=== PATIENT | male | born 1935 | race Caucasian/White ===

== ENCOUNTER 2017-11-09 18:47 | Inpatient (IN) | payer MEDICARE ==
[2017-11-09 20:06] LABS: #Eosinphils 0.1 thou/uL (0.0-0.7); #Lymphocytes 2.2 thou/uL (1.20-3.40); %Basophils 0.4 % (0.0-1.0); %Eosinophils 0.6 % (0.0-10.0); %Lymphocytes 21.4 % (21.0-51.0); %Monocytes 9.7 % (0.0-10.0); %Neutrophils 67.9 % (42.0-75.0); Hemoglobin 14.3 g/dL (14.0-18.0); Mean Corpuscular HGB CONC 33.8 g/dL (32.0-36.0); Mean Corpuscular Hemoglobin 32.5 pg (27.0-31.0); Mean Corpuscular Volume 96.3 fL (78.0-98.0); Mean Platelet Volume 7.6 fL (7.4-10.4); Platelet Count 141 thou/uL (130-400); White Blood Cell (WBC) Count 10.3 thou/uL (4.8-10.8)
[2017-11-09 20:16] LABS: INR-International Normal Ratio 1.1; Prothrombin Time 14.3 SEC (12.0-14.7)
[2017-11-09 20:27] LABS: CK (CPK) 116 U/L (30-200); Lipase 100 U/L (8-78)
[2017-11-09 20:29] LABS: Troponin I 0.014 ng/mL (< 0.028)
[2017-11-09 20:40] LABS: ALT (SGPT) 124 U/L (8-55); AST (SGOT) 202 U/L (5-34); Albumin 3.3 g/dL (3.4-4.8); Alkaline Phosphatase 177 U/L (40-150); Anion Gap 14 mmol/L (10-20); BUN (Urea Nitrogen) 35 mg/dL (8.4-25.7); Bilirubin, Total 0.7 mg/dL (0.2-1.2); Calc. Creatinine Clearance 0 mL/min (70-130); Calcium 10.9 mg/dL (7.8-10.44); Carbon Dioxide 23 mmol/L (23-31); Chloride 105 mmol/L (98-107); Estimated GFR-MDRD 50; Globulin 3.6 g/dL (2.4-3.5); Glucose 133 mg/dL (83-110); Potassium 4.4 mmol/L (3.5-5.1); Protein, Total 6.9 g/dL (5.8-8.1); Sodium 138 mmol/L (136-145)
[2017-11-10] MEDS ORDERED: Bisacodyl 5 MG TAB PO PRN (01:06)
[2017-11-10] MEDS ORDERED: Ondansetron HCl/PF 4 MG/2 ML Vial IVP PRN (01:06)
[2017-11-10] MEDS ORDERED: Senokot 8.6 MG TAB PO PRN (01:06)
--- NOTE | 2017-11-10 01:20 | PDOC.EVN ---
Event Note - Event Note Event Note: h&p [id number]
[2017-11-10 01:44] VITALS: BMI 29.1
[2017-11-10 02:05] LABS: Troponin I 0.013 ng/mL (< 0.028)
[2017-11-10] MEDS: Sodium Chloride 0.9% 1,000 ML IV SCH ×2 (02:25→16:30)
--- NOTE | 2017-11-10 02:50 | HP ---
PRIMARY CARE PHYSICIAN: Dr. Bui. CHIEF COMPLAINT: Chest pain. HISTORY OF PRESENT ILLNESS: This is an 82-year-old male with previously minimal past medical history other than hypertension who presented with chest pain throughout his chest bilaterally for the last several days. It appears that the patient was previously seen at [facility] for these complaints, was told that he has new liver and bone cancer metastases and possible cholecystitis, and subsequently transferred to our facility for "insurance issues." At the time of my evaluation, the patient still has chest pain. He describes it as a dull pain throughout his chest wall and it is intermittent in nature and does not seem to be better or worse with exertion or rest. Patient states that is dull, throbbing like. He also had similar pain along his back and to his hips as well. He denies any shortness of breath, diaphoresis, nausea with these episodes of discomfort. At the time of my evaluation, the patient currently does not have active discomfort REVIEW OF SYSTEMS: As per HPI. Constitutional: The patient denies any overt weight gain or loss. His daughter is with him at bedside and feels that he may have been losing some weight and he definitely has been having decreased oral intake per family at bedside. Denies any fevers or chills. HEENT: Denies any lightheadedness, dizziness, new headaches, or vision changes. Cardiovascular: Chest discomfort as described above. No left-sided only numbness or tingling. No episodes of diaphoresis. Respiratory: Denies any shortness of breath, cough , congestion, or recent upper respiratory infection. Gastrointestinal: Denies any nausea, vomiting, abdominal pain issues with diarrhea. He has been having some intermittent issues with constipation. Patient's family at bedside, feels that he has been eating less than his usual. Patient himself, however, describes a retained appetite. Genitourinary: Denies any dysuria or changes in urinary frequency, quality, quantity. Denies any issues with starting urinary stream. Musculoskeletal: As per above. Remainder of the review of systems is otherwise negative. PAST MEDICAL HISTORY: Significant for hypertension. PAST SURGICAL HISTORY: 1. Status post hernia repair. 2. Status post cataract surgery, bilateral. HOME MEDICATIONS: Please see the EMR for full details. His list currently includes lisinopril 20 mg p.o. daily, omeprazole 40 mg p.o. daily. It appears that in his medications, he is on cefdinir 300 mg p.o. b.i.d., I am not quite sure why the patient has this listed. The patient self did not mention this as active medications. ALLERGIES: The patient has allergies to AMLODIPINE and NIACIN. FAMILY HISTORY: Significant for longevity throughout his family, many family members living to their 90s and 100s. The patient does not have any known oncologic family history. SOCIAL HISTORY: The patient denies any alcohol, tobacco, or illicit drug use. He is accompanied today by his daughter. 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 He endorses wishing to be a DNR at this point in time. PHYSICAL EXAMINATION: GENERAL: The patient is awake, alert, conversant, in no acute distress, seated on the edge of the hospital bed. HEENT: Normocephalic, atraumatic. Moist mucous membranes. Equal ocular motions are intact. CARDIOVASCULAR: S1, S2. No murmurs, rubs, or gallops. EXTREMITIES: Pulses 2+ bilateral upper extremities. No pitting pedal edema on the left lower extremity, does have approximately 1-2+ bilateral lower pitting pedal edema on the right lower extremity, which the patient says it is grossly unchanged from his baseline. RESPIRATORY: Reasonable air movement. No wheezes, rales, or rhonchi. No conversational dyspnea. Grossly clear to auscultation. ABDOMEN: Positive bowel sounds, soft, slightly tender to palpation over the right upper quadrant. MUSCULOSKELETAL: Moving all 4 extremities. Able to ambulate to the bathroom and back without difficulty or assistance. LABORATORY DATA AND IMAGING: The patient supposedly had a CT completed of the chest, abdomen, and pelvis along with ultrasound of the abdomen conducted also at [facility]. Images are currently not available for direct viewing. WBC 10.3, hemoglobin 14.3, hematocrit 42.3, platelets 141,000. PT 14.3, INR 1.1. Sodium 138, potassium 4.4, chloride 105, bicarbonate 23, BUN 35, creatinine 1.36, glucose 133, calcium 10.9, total bilirubin 0.7, AST 202, ALT 124, alkaline phosphatase 177. Creatinine kinase 116, troponin 0.014. Total protein 6.9, albumin 3.3, lipase of 100. ASSESSMENT AND PLAN: This is an 82-year-old male who presented with a chief complaint of chest pain. 1. Regarding the chest pain, the patient certainly could have chest pain secondary to acute coronary syndrome. He certainly could be evaluated for this as such. However, the patient also has newly noted bony metastases, which is a current more likely explanation for all of his symptoms. 2. Bony metastases throughout multiple bony prominences. We will start with symptomatic management including lidocaine patch, NSAIDs, and tramadol. Oncology has already been consulted for this patient. Suspect that the elevated calcium is related to these mets as well. Unknown primary site at this point in time. Palliative care has also been consulted as well. 3. Concern for the possibility of cholelithiasis with cholecystitis. It appears that gallstones were noted. The patient certainly has a component of transaminitis including elevated AST, ALT, alkaline phosphatase, and also an elevated lipase as well. I suspect that these may be related to direct and metastatic lesions that are noted throughout the liver. However, appreciate surgical consult for their evaluation whether or not this patient may benefit from any manipulation of the gallbladder. In the meantime, continue supportive pain management, IV fluids, and an n.p.o. status. We will recheck his LFTs in the morning. 4. Elevated BUN and creatinine. We will continue with gentle IV hydration and closely monitor the patient's urine output. 5. Diet: Currently n.p.o. 6. Activity: As tolerated. 7. Deep venous thrombosis prophylaxis with enoxaparin. 8. Patient is a DNR. MTDD
[2017-11-10 05:09] LABS: #Eosinphils 0.1 thou/uL (0.0-0.7); #Lymphocytes 2.2 thou/uL (1.20-3.40); #Neutrophils 6.9 thou/uL (1.40-6.50); %Basophils 0.1 % (0.0-1.0); %Eosinophils 1.2 % (0.0-10.0); %Lymphocytes 21.2 % (21.0-51.0); %Monocytes 9.9 % (0.0-10.0); %Neutrophils 67.5 % (42.0-75.0); Hemoglobin 13.7 g/dL (14.0-18.0); Mean Corpuscular HGB CONC 34.7 g/dL (32.0-36.0); Mean Corpuscular Hemoglobin 33.1 pg (27.0-31.0); Mean Corpuscular Volume 95.2 fL (78.0-98.0); Mean Platelet Volume 7.8 fL (7.4-10.4); Platelet Count 140 thou/uL (130-400); RBC Distribution Width 12.8 % (11.5-14.5); Red Blood Cell (RBC) Count 4.14 mill/uL (4.70-6.10); White Blood Cell (WBC) Count 10.2 thou/uL (4.8-10.8)
[2017-11-10 05:31] LABS: ALT (SGPT) 128 U/L (8-55); AST (SGOT) 209 U/L (5-34); Albumin 3.2 g/dL (3.4-4.8); Alkaline Phosphatase 165 U/L (40-150); Anion Gap 15 mmol/L (10-20); BUN (Urea Nitrogen) 34 mg/dL (8.4-25.7); Bilirubin, Total 0.8 mg/dL (0.2-1.2); Calc. Creatinine Clearance 67 mL/min (70-130); Calcium 10.8 mg/dL (7.8-10.44); Carbon Dioxide 22 mmol/L (23-31); Chloride 106 mmol/L (98-107); Estimated GFR-MDRD 61; Globulin 3.5 g/dL (2.4-3.5); Glucose 97 mg/dL (83-110); Lipase 118 U/L (8-78); Potassium 4.5 mmol/L (3.5-5.1); Protein, Total 6.7 g/dL (5.8-8.1); Sodium 138 mmol/L (136-145)
[2017-11-10] MEDS: Lidocaine 5% Patch TD SCH (08:47)
[2017-11-10] MEDS: Enoxaparin Sodium 30 MG/0.3 ML SYRINGE SC SCH (08:48)
[2017-11-10] MEDS: Docusate 100 MG CAP PO SCH ×2 (08:48→20:47)
--- NOTE | 2017-11-10 11:10 | ULT ---
GALLBLADDER ULTRASOUND: HISTORY: An 82-year-old male with a history of chest pain. Liver echogenicity is markedly abnormal with what appear to be innumerable nodule or masses throughou t the right and left lobes of the liver very concerning for liver metastasis. There are multiple gal lstones within the gallbladder. There is some focal gallbladder wall thickening with a small amount of pericholecystic fluid versus some free fluid in the subhepatic space. There is a complex cystic m ass involving the right kidney measuring 5.2 x 5.4 x 6.8 cm with what appear to be some septations, s ome of which appear to be calcified as well as a potential more nodular intracystic mass up to approx imately 1.6 cm. There is no right renal hydronephrosis. The region of the pancreas is mostly obscur ed. IMPRESSION: 1. Multiple gallstones within the gallbladder with some gallbladder wall thickening and a small amou nt of fluid adjacent to the gallbladder, either some pericholecystic fluid or a small amount of free fluid in the subhepatic space. If there is clinical concern for acute cholecystitis, a followup [facility] hepatobiliary scan might be a consideration. 2. Very extensively abnormal nodular echogenicity throughout the right and left lobes of the liver, certainly very worrisome for very extensive liver metastasis. 3. Complex left renal cystic mass. 4. Followup multiphase CT scan with and without IV contrast of the abdomen and pelvis including tashi rial phase, portal venous phase, and delayed imaging to further evaluate the liver abnormalities as w ell as the right renal abnormality is recommended for further assessment. CODE T POS: PHIL
--- NOTE | 2017-11-10 13:22 | PDOC.PN ---
- Subjective Encounter Start Date: 11/10/17 Encounter Start Time: 13:17 Mr. Spain was seen for follow-up. of chest discomfort, and newly diagnosed metastatic cancer. He says the pain is better with the Lidoderm patch. He denies any abdominal pain, and he denies nausea or vomting. He is currently sitting up eating lunch without a problem. - Objective Resuscitation Status: Resuscitation Status FULL:Full Resuscitation MAR Reviewed: Yes Vital Signs & Weight: Vital Signs (12 hours) Temp Pulse Resp BP Pulse Ox 11/10/17 08:00 98.3 F 74 16 93 L 11/10/17 04:17 98.3 F 74 16 156/74 H 93 L Weight Admit Weight 214 lb 15.211 oz Weight 214 lb 15.211 oz Result Diagrams: 11/10/17 04:30 11/10/17 04:30 Phys Exam - Physical Examination HEENT: PERRLA Respiratory: no wheezing, no rales, no rhonchi, clear to auscultation bilateral Cardiovascular: RRR, no significant murmur, no rub Gastrointestinal: soft, positive bowel sounds Musculoskeletal: no edema Dx/Plan (1) Cholelithiasis Code(s): K80.20 - CALCULUS OF GALLBLADDER W/O CHOLECYSTITIS W/O OBSTRUCTION Status: Acute (2) Metastatic malignant neoplasm of unknown primary site Code(s): C79.9 - SECONDARY MALIGNANT NEOPLASM OF UNSPECIFIED SITE; C80.1 - MALIGNANT (PRIMARY) NEOPLASM, UNSPECIFIED Status: Acute - Plan * Cholelithiasis- Clinically he does not behave as if he has acute or subacute cholecystitis-will hold off on HIDA scan- will await further opinion from General Surgery. * Metastatic cancer with unknown Primary site- discussed with patient and daughter in detail. Will await recommendations from Oncology, as to pursue a tissue diagnosis or not, information regarding prognosis ect.
[2017-11-10] MEDS ORDERED: Melatonin 3 MG TAB PO PRN (13:26)
--- NOTE | 2017-11-10 15:17 | EKG ---
Test Reason : Blood Pressure : / mmHG Vent. Rate : 077 BPM Atrial Rate : 077 BPM P-R Int : 232 ms QRS Dur : 102 ms QT Int : 360 ms P-R-T Axes : -17 -31 053 degrees QTc Int : 407 ms Sinus rhythm with 1st degree A-V block Left axis deviation Abnormal ECG When compared with ECG of 09-NOV-2017 19:58, (Unconfirmed) No significant change was found Confirmed by NEHEMIAS PULIDO MD ([id number]) on 11/10/2017 3:17:30 PM Referred By: SHRUTI Confirmed By:NEHEMIAS PULIDO MD
--- NOTE | 2017-11-10 15:23 | CON ---
DATE OF CONSULTATION: 11/10/2017 CHIEF COMPLAINT: Right upper quadrant pain. HISTORY OF PRESENT ILLNESS: This is an 82-year-old male, who was transferred over from an outside in [facility] with right upper quadrant pain, found on CT there to have evidence of diffuse hepatic malig nadya associated with diffuse osseous lytic lesions, probably due to some undiagnosed malignancy and metastatic disease. He denies weight loss, fever, or chills. He has had occasional nausea, but righ t upper quadrant pain had become more intense. It is described as 8/10; it is not associated with ea ting. He denies even any previous known malignancy of any kind. He has had a colonoscopy. He is un sure when, within the last 10 years. Denies blood in stool. PAST MEDICAL HISTORY: Hypertension. PAST SURGICAL HISTORY: Hernia repair, cataracts. MEDICINES: At home, lisinopril, omeprazole. ALLERGIES: AMLODIPINE, NIACIN FAMILY HISTORY: There is no significant history of GI malignancy or anesthetic-related complication. SOCIAL HISTORY: No smoking, alcohol, or other drugs. REVIEW OF SYSTEMS: Otherwise, negative unless described above. PHYSICAL EXAMINATION: VITAL SIGNS: Blood pressure is 159/75, pulse 78, respirations 16, temperature 98.2. HEENT: Sclerae are anicteric. Oropharynx clear. NECK: No lymphadenopathy. CHEST: Clear. HEART: Regular rate and rhythm. ABDOMEN: Soft. He has some mild tenderness in the right upper quadrant without guarding or rebound with reducible umbilical hernia: No ischemia or edema to extremities. LABORATORY DATA: White cell count is 10, hemoglobin 13, platelet count is 140. Sodium 138, potassiu m 4.5, creatinine is 1.15, calcium high at 10.8. Bilirubin is normal. AST, ALT, and alkaline phosph atase are 209, 128, and 165. Lipase elevated at 118. Albumin low at 3.2. CT scan is reviewed from [facility]. Ultrasound today here shows borderline wall thickening, pericholecystic fl uid, and gallstones, normal common bile duct. ASSESSMENT: 1. Diffuse hepatic malignancy, associated with evidence of metastatic lytic lesions to bone. 2. Right upper quadrant pain, cannot rule out cholecystitis. PLAN: I think his pain in the right upper quadrant is multifactorial. It would be hard to tell whet her this pain is associated with gallbladder, obstructed by stone or malignancy. He could just be smith ving tumor burden pain. I do not recommend cholecystectomy at this time that would be difficult or d angerous given his underlying disease. If his symptoms persist, he could undergo cholecystostomy tub e placement. That would be the only invasive procedure. I would recommend he does need continued wo rkup for this malignancy at this time. So no plans for surgery. We will follow with you.
[2017-11-10] MEDS: HYDROcodone/Acetaminophen 5/325 mg Tablet PO PRN ×2 (16:25→23:49)
[2017-11-10 17:58] LABS: CEA, Serum 110.78 ng/mL (< or = 5.0)
[2017-11-10 17:59] LABS: PSA-Symptomatic (DIAGNOSTIC) 5.64 ng/mL (0-4.0)
--- NOTE | 2017-11-10 18:00 | PDOC.EVN ---
Event Note - Event Note Event Note: I spoke with patient earlier with his daughter present for the purpose of Advanced care planning. We spoke about the finding of extensive metastatic disease found at [facility] as well as the finding on the abdominal ultrasound as well. The patient explained to me that he is aware of the how severe the disease is, but admits he will need more information before making any informed decision regarding future treatment going forward. This would include decisions regarding code status. His level of functioning was actually ok , and he was independent of ADLS's prior to just the last few weeks when he began to feel weak. He is realistic about the prognosis, but would like to try to live for his daughters I was also told that his is on Hospice care now. For now he will remain FULL Code, and await further recommendations from Oncology. APC- 30 minutes
[2017-11-10] MEDS: Lidocaine Patch Removal 1 EACH TOP SCH (20:46)
--- NOTE | 2017-11-10 22:56 | CON ---
DATE OF CONSULTATION: 11/10/2017 REASON FOR CONSULTATION: Metastatic liver lesions and lytic bone lesions. HISTORY OF PRESENT ILLNESS: Mr. Spain is a pleasant 82-year-old gentleman, who presented to [facility] with complaints of chest pain. He began having shoulder and back pain approximately 5 or 6 months ago. It has progressively worsened, so he presented to the emergency room for evaluation. A CT angio performed showed no pulmonary embolism; however, there were innumerable lytic lesions see n throughout the bone structures. He had some healing rib fractures bilaterally. There was a small right pleural effusion. There was also some nonspecific enlarged hilar lymph nodes. He then underwe nt a CT of the abdomen and pelvis without contrast. There were multiple hypodense lesions throughout the liver consistent with metastatic disease. There was a 6.4 cm exophytic cyst involving the infer ior right kidney for some cholelithiasis with questionable gallbladder thickening. He had colonic di verticulosis without inflammation. His prostate was enlarged measuring 7.5 cm. The patient's insura nce required transfer to this facility. He was admitted here for further workup. Dr. Beverly has se en the patient for his gallbladder issues. No surgery is planned. We were asked to see the patient regarding the CT findings. The patient states he began to have pain over 2 years ago, but over the l ast 5 or 6 months it has significantly decreased. He has lost 15-20 pounds over the past month, alth ough he states that he has been trying to lose weight. He denies any fever, chills, night sweats. N o chest pain or shortness of breath, no abdominal discomfort, no nausea, vomiting, or change in bowel movements. He does admit that he has some difficulty urinating. He also has difficulty with his co mplete bladder emptying and states his stream is a regular times. He does not know when he has had h is last prostate evaluation. He has been seen by what sounds like a vascular surgeon in [place], who has evaluated his right lower extremity edema. Apparently there is some venous insufficiency and a surgery was being planned for November. PAST MEDICAL HISTORY: 1. Hypertension. 2. Chronic right lower extremity edema. PAST SURGICAL HISTORY: Hernia repair, cataracts. ALLERGIES: Amlodipine and NIACIN. HOME MEDICATIONS: 1. Lisinopril 20 mg daily. 2. Prilosec 40 mg daily. FAMILY HISTORY: No known malignancy in family members. SOCIAL HISTORY: . No alcohol, tobacco or illicit drug use. REVIEW OF SYSTEMS: Twelve-point review of systems is negative except for noted in HPI. PHYSICAL EXAMINATION: VITAL SIGNS: Temperature is 98.2, pulse is 78, respiratory rate 16, BP is 159/75. He is 94% on room air. GENERAL: Well-developed, well-nourished male in no acute distress. HEENT: Normocephalic, atraumatic. Pupils equal and reactive to light. NECK: Supple, with no mass. CARDIOVASCULAR: Regular rate and rhythm. LUNGS: Clear. ABDOMEN: Mildly distended, obese. He has a palpable liver approximately 2 cm below the costophrenic angle. Bowel sounds are positive. EXTREMITIES: He has 2+ edema in his right lower extremity, none in his left. LYMPHATIC: There is no palpable lymphadenopathy. HEMATOLOGIC: There is no petechia or purpura. NEUROLOGICAL: Nonfocal. PSYCHIATRIC: The patient is alert and oriented and appropriate. PERTINENT LABORATORY AND X-RAYS: Current WBCs are 10.2, hemoglobin 13.7, hematocrit 39.4, platelet c ount is 140,000. He has got 67% neutrophils, 21% lymphocytes. PT is 14.3, INR is 1.1, PTT is 35. S odium is 138, potassium 4.5, chloride 106, CO2 is 22, BUN is 34, creatinine 1.15, glucose is 97, calc ium is 10.8, total bilirubin is 0.8, AST is 209, ALT is 128, alkaline phosphatase is 165. Creatinine kinase is 116. Troponin is normal. Serum total protein is 6.7, albumin 3.2, globulin 3.5, lipase i s 118. ASSESSMENT: 1. Metastatic liver lesions. 2. Lytic lesions. 3. Hypercalcemia. 4. Elevated transaminases. 5. Enlarged prostate on CT scan. DISCUSSION: We will perform some PSA and CEA. We will check a SPEP and quantitative immunoglobulins . Differential diagnosis includes a solid tumor cancer such as renal or prostate versus a multiple m yeloma. Ultimately, he needs a CT guided biopsy of one of the liver lesions, which will be planned or Monday morning. I have adjusted his pain medications and he was encouraged to manage his pain, IV fluids have been started for his hypercalcemia and hopefully will improve over the next 24 hours. W e will continue to monitor his labs and further recommendations will be based on current orders. Thank you for the consult.
[2017-11-11 05:20] LABS: #Eosinphils 0.1 thou/uL (0.0-0.7); #Lymphocytes 2.1 thou/uL (1.20-3.40); #Monocytes 0.8 thou/uL (0.11-0.59); #Neutrophils 6.3 thou/uL (1.40-6.50); %Basophils 0.3 % (0.0-1.0); %Eosinophils 1.2 % (0.0-10.0); %Lymphocytes 22.6 % (21.0-51.0); %Monocytes 8.4 % (0.0-10.0); %Neutrophils 67.5 % (42.0-75.0); Hemoglobin 13.1 g/dL (14.0-18.0); Mean Corpuscular Hemoglobin 33.3 pg (27.0-31.0); Mean Corpuscular Volume 95.2 fL (78.0-98.0); Platelet Count 126 thou/uL (130-400); Red Blood Cell (RBC) Count 3.93 mill/uL (4.70-6.10); White Blood Cell (WBC) Count 9.3 thou/uL (4.8-10.8)
[2017-11-11 05:47] LABS: ALT (SGPT) 122 U/L (8-55); AST (SGOT) 215 U/L (5-34); Alkaline Phosphatase 157 U/L (40-150); Anion Gap 13 mmol/L (10-20); BUN (Urea Nitrogen) 36 mg/dL (8.4-25.7); Bilirubin, Total 0.8 mg/dL (0.2-1.2); Calc. Creatinine Clearance 65 mL/min (70-130); Calcium 10.7 mg/dL (7.8-10.44); Carbon Dioxide 22 mmol/L (23-31); Chloride 107 mmol/L (98-107); Estimated GFR-MDRD 59; Globulin 3.8 g/dL (2.4-3.5); Glucose 93 mg/dL (83-110); Potassium 5.2 mmol/L (3.5-5.1); Protein, Total 6.8 g/dL (5.8-8.1); Sodium 137 mmol/L (136-145)
[2017-11-11] MEDS: Sodium Chloride 0.9% 1,000 ML IV SCH ×3 (05:51→23:57)
[2017-11-11] MEDS: Lidocaine 5% Patch TD SCH (09:28)
[2017-11-11] MEDS: Enoxaparin Sodium 30 MG/0.3 ML SYRINGE SC SCH (09:28)
[2017-11-11] MEDS: Docusate 100 MG CAP PO SCH ×2 (09:32→20:45)
[2017-11-11] MEDS: HYDROcodone/Acetaminophen 5/325 mg Tablet PO PRN ×2 (12:04→17:36)
--- NOTE | 2017-11-11 15:24 | PDOC.PN ---
- Subjective Encounter Start Date: 11/11/17 Encounter Start Time: 15:22 Mr. Spain was seen today in follow-up of metastatic cancer, primary unknown. He says that the pain he had is better controlled. - Objective Resuscitation Status: Resuscitation Status FULL:Full Resuscitation MAR Reviewed: Yes Vital Signs & Weight: Vital Signs (12 hours) Temp Pulse Resp BP Pulse Ox 11/11/17 08:07 98.0 F 64 18 153/78 H 92 L 11/11/17 08:00 98.0 F 64 18 Weight Admit Weight 214 lb 15.211 oz Weight 214 lb 15.211 oz I&O: 11/10/17 11/11/17 11/12/17 06:59 06:59 06:59 Intake Total 1500 240 Balance 1500 240 Result Diagrams: 11/11/17 03:52 11/11/17 03:52 Phys Exam - Physical Examination HEENT: PERRLA Respiratory: no wheezing, no rales, no rhonchi, clear to auscultation bilateral Cardiovascular: RRR, no significant murmur, no rub Gastrointestinal: soft, non-tender, positive bowel sounds Musculoskeletal: edema present + 2+ pitting edema in theleft lower extremity, no erythema, no redness no warmth Dx/Plan (1) Cholelithiasis Code(s): K80.20 - CALCULUS OF GALLBLADDER W/O CHOLECYSTITIS W/O OBSTRUCTION Status: Acute (2) Metastatic malignant neoplasm of unknown primary site Code(s): C79.9 - SECONDARY MALIGNANT NEOPLASM OF UNSPECIFIED SITE; C80.1 - MALIGNANT (PRIMARY) NEOPLASM, UNSPECIFIED Status: Acute - Plan * Metastatic Cancer, unknown Primary- Oncology recommendations noted- plan is for CT guided liver biopsy on Monday, and additional lad work noted * Symptom management - pain is controlled * Cholelithiasis- he does not clinically appear to have cholecystitis- he is tolerating a solid diet- will observe. * Right Lower extremity edema- I spoke with the patient about this. He says the swelling is actually less that it has been. It was first noted a few months ago , and his Primary Care Provider sent him for an Ultrasounf in [place], and it was reported to be negative. He was instructed to wear a compression stocking daily. Will request the records from [facility].
[2017-11-11] MEDS: traMADol HCl 50 MG TAB PO PRN (19:40)
[2017-11-11] MEDS: Lidocaine Patch Removal 1 EACH TOP SCH (20:45)
[2017-11-12 04:50] LABS: ALT (SGPT) 132 U/L (8-55); AST (SGOT) 222 U/L (5-34); Albumin 3.2 g/dL (3.4-4.8); Alkaline Phosphatase 170 U/L (40-150); Anion Gap 12 mmol/L (10-20); BUN (Urea Nitrogen) 35 mg/dL (8.4-25.7); Bilirubin, Total 1.1 mg/dL (0.2-1.2); Calc. Creatinine Clearance 62 mL/min (70-130); Calcium 11.4 mg/dL (7.8-10.44); Carbon Dioxide 25 mmol/L (23-31); Chloride 108 mmol/L (98-107); Estimated GFR-MDRD 55; Globulin 3.5 g/dL (2.4-3.5); Glucose 99 mg/dL (83-110); Potassium 4.7 mmol/L (3.5-5.1); Protein, Total 6.7 g/dL (5.8-8.1); Sodium 140 mmol/L (136-145)
[2017-11-12 05:02] LABS: Hemoglobin 13.8 g/dL (14.0-18.0); Lymphocytes 23 % (21-51); MDiff Complete? YES; Mean Corpuscular HGB CONC 34.5 g/dL (32.0-36.0); Mean Corpuscular Hemoglobin 32.9 pg (27.0-31.0); Mean Corpuscular Volume 95.3 fL (78.0-98.0); Mean Platelet Volume 8.5 fL (7.4-10.4); Monocytes 3 % (0-10); Neutrophil 74 % (42-75); PLT Morphology Comment Appears Adequate; Platelet Count 152 thou/uL (130-400); RBC Distribution Width 13.2 % (11.5-14.5); Red Blood Cell (RBC) Count 4.19 mill/uL (4.70-6.10); White Blood Cell (WBC) Count 10.2 thou/uL (4.8-10.8)
[2017-11-12] MEDS: Docusate 100 MG CAP PO SCH ×2 (08:02→20:37)
[2017-11-12] MEDS: Enoxaparin Sodium 30 MG/0.3 ML SYRINGE SC SCH (08:02)
[2017-11-12] MEDS: Lidocaine 5% Patch TD SCH (08:03)
[2017-11-12] MEDS: HYDROcodone/Acetaminophen 5/325 mg Tablet PO PRN ×3 (08:06→20:37)
--- NOTE | 2017-11-12 08:21 | ULT ---
RIGHT LOWER EXTREMITY VENOUS DUPLEX EXAM: Deep veins of the right lower extremity were evaluated with color Doppler with spectral analysis and compression. INDICATION: Right lower extremity pain and edema. FINDINGS: Deep veins of the right lower extremity show normal blood flow and compression. No evidence of DVT. IMPRESSION: No evidence of right lower extremity deep vein thrombosis. POS: CRISTHIAN
--- NOTE | 2017-11-12 12:45 | PDOC.PN ---
- Subjective Encounter Start Date: 11/12/17 Encounter Start Time: 12:43 Mr. Spain was seen today in follow-up of metastatic cancer, unknown primary. He says the pain in his chest is ok, when he is still, but when he moves it can get as high as 10/10. No new complaints. - Objective Resuscitation Status: Resuscitation Status FULL:Full Resuscitation MAR Reviewed: Yes Vital Signs & Weight: Vital Signs (12 hours) Temp Pulse Resp BP Pulse Ox 11/12/17 08:00 97.6 F 107 H 18 95 11/12/17 07:42 97.6 F 107 H 18 146/78 H 91 L Weight Admit Weight 214 lb 15.211 oz Weight 214 lb 15.211 oz I&O: 11/11/17 11/12/17 11/13/17 06:59 06:59 06:59 Intake Total 1500 4411 360 Balance 1500 4411 360 Result Diagrams: 11/12/17 04:09 11/12/17 04:09 Phys Exam - Physical Examination HEENT: PERRLA Respiratory: no wheezing, no rales, no rhonchi, clear to auscultation bilateral Cardiovascular: RRR, no significant murmur, no rub Gastrointestinal: soft, non-tender, positive bowel sounds Musculoskeletal: edema present 1-2 + edema in the right lower extremity no warmth, no erythema Neurological: moves all 4 limbs Dx/Plan (1) Cholelithiasis Code(s): K80.20 - CALCULUS OF GALLBLADDER W/O CHOLECYSTITIS W/O OBSTRUCTION Status: Acute (2) Metastatic malignant neoplasm of unknown primary site Code(s): C79.9 - SECONDARY MALIGNANT NEOPLASM OF UNSPECIFIED SITE; C80.1 - MALIGNANT (PRIMARY) NEOPLASM, UNSPECIFIED Status: Acute - Plan * Metastatic cancer with unknown primary- plan is for CT guided liver biopsy tomorrow. Bone scan has been ordered, and await SPEP UPEP results * Continue symptom management * Hypercalcemia- continue IV hydration * Cholelithiasis- asymptomatic * Lower extremity edema- likely venous stasis- doppler was negative.
[2017-11-12] MEDS: Sodium Chloride 0.9% 1,000 ML IV SCH (14:46)
[2017-11-12] MEDS: Lidocaine Patch Removal 1 EACH TOP SCH (20:46)
[2017-11-13] MEDS: Sodium Chloride 0.9% 1,000 ML IV SCH ×4 (00:10→22:04)
[2017-11-13] MEDS: HYDROcodone/Acetaminophen 5/325 mg Tablet PO PRN ×2 (04:45→09:22)
[2017-11-13 05:20] LABS: ALT (SGPT) 136 U/L (8-55); AST (SGOT) 230 U/L (5-34); Albumin 3.3 g/dL (3.4-4.8); Alkaline Phosphatase 174 U/L (40-150); Anion Gap 12 mmol/L (10-20); BUN (Urea Nitrogen) 32 mg/dL (8.4-25.7); Bilirubin, Total 1.1 mg/dL (0.2-1.2); Calc. Creatinine Clearance 66 mL/min (70-130); Calcium 11.4 mg/dL (7.8-10.44); Carbon Dioxide 22 mmol/L (23-31); Chloride 109 mmol/L (98-107); Estimated GFR-MDRD 60; Globulin 3.7 g/dL (2.4-3.5); Glucose 90 mg/dL (83-110); Potassium 4.4 mmol/L (3.5-5.1); Sodium 139 mmol/L (136-145)
--- NOTE | 2017-11-13 05:31 | CON ---
DATE OF CONSULTATION: 11/14/2017 REASON FOR CONSULTATION: Liver masses, elevated CEA. HISTORY OF PRESENT ILLNESS: Mr. Spain is an 82-year-old gentleman from [facility]. States he really had been in very good health his full life. He has taken some blood pressure medicine, lisinopril, he recalls. In the past several months, he has had quite a bit of chest soreness and discomfort which he thought was related to straining himself as he moves his around a lot. She is on hospice at home after previous stroke. More recently, the pain got worse and he ended up going to the emergency room at [facility] in [place]. There, he had some x-rays that showed multiple lytic lesions in the bone and rib fractures and he had a CAT scan that showed lesions to the liver and he had a CT of the chest that showed no PE, but numerous lytic lesions throughout all osseous structures, very concerned for metastatic disease or myeloma per the radiologist. The CAT scan of the abdomen and pelvis; however, it was without contrast. They did not comment on the size of the liver lesions present. Prostate was noted to be a large 7.5 cm. There was an exophytic cyst in the kidney of 6.4 cm. There were no overt solid lesions, but again this was a noncontrast CT. Gallstones were noted. There was some "questionable mild gallbladder wall thickening" per the radiologist. Since arrival here, the patient had an Oncology consult on Monday and was recommended that the patient have a liver biopsy of one lesion which is going to be done tomorrow. Also, there was an order for a nuclear medicine scan. I talked with the patient, he really has not been to the doctor for quite a while. As he had problems, he recently started seeing Dr. Bui in [place], but does have a little bit of problems getting in to see doctors because his insurance changed and he also takes care of his . He denies any significant weight loss, he meets maybe 10 pounds. He is dropped. He does have blood in the stool which was bright red at times. He attributes this to hemorrhoids. He denies any change in bowel function otherwise and states it has been present for many years. He reports he had a colonoscopy twice in the past, may be the most recent being 5- 6 years ago, these were notable for a few polyps and nothing else. Apparently, these were done in the [place] area. He denies any dysphagia, odynophagia, early satiety. When asked about abdominal pain, he states he really has not had much of that, although it was just kind of band-like across the upper abdomen and chest and pain that occurred movement. Admission notes from surgery and other specialists indicated may be some right upper quadrant pain, but he does not really thinks back it was more of chest pain, although he has received some pain medicine now. His labs have been significant for a white count of 10.2, hemoglobin 13.8, platelet count of 152. INR 1.1. Sodium 140, potassium 4.7, BUN and creatinine are 35 and 1.25, calcium 11.4, this has gone up each day. AST is 222, ALT is 132, alkaline phosphatase is 170. CEA is 110 and PSA is 5.6. He did note he has been having some right leg swelling since about April and had an ultrasound in [place] that showed no clots. He had an ultrasound here today that showed no DVT. Here, the only imaging study has been done as an ultrasound that shows what appears to be liver lesions. PAST MEDICAL HISTORY: Hypertension. PAST SURGICAL HISTORY: Hernia repair when he was in his 30s. Cardiac surgery about 8 years ago. Colonoscopy is anywhere from 6-10 years ago. HOME MEDICATIONS: Lisinopril and omeprazole. MEDICATIONS: Here include Tylenol, Hood, Dulcolax, Colace, Lovenox, Lidoderm patch, milk of magnesia, melatonin, Zofran, Senokot, and Ultram. SOCIAL HISTORY: Negative for active tobacco. REVIEW OF SYSTEMS: Negative for shortness of breath, definitely significant for pain with movement. He reports his pain control and is good now. PHYSICAL EXAMINATION: VITAL SIGNS: Pulse 107, temperature 97, blood pressure 146/78. NECK: Supple without adenopathy. There is no thyromegaly. There are no supraclavicular right clavicular lymph nodes. LUNGS: Clear. Chest wall is tender and was therefore not palpated too much. There is no need for axillary or adenopathy or periumbilical adenopathy. There was a small periumbilical hernia. HEART: Regular rate and rhythm without clicks or murmurs. ABDOMEN: Soft and nontender. Al though there is almost a little bit of crepitus in the right abdominal wall, this is not reproducible. He does have some fullness in the upper quadrant, but no rebound or guarding. There is no Molina sign. RECTAL: Reveals brown stool which is heme negative and external hemorrhoids. EXTREMITIES: No real edema in the right leg. ASSESSMENT: This is an 82-year-old gentleman who presented with chest pain which seems to be related to pathologic fractures in the ribs various ages and extensive bone metastatic disease, primary is unknown, but he has multiple liver lesions on outside imaging test of the liver. A CAT scan, however, this was without contrast. He has an elevated CEA of over 200 leading towards primary of glandular tissue. He, however, reports a normal colonoscopy except for a few small polyps 5-6 years ago and really has no overt GI symptoms with some rectal outlet bleeding. A digital exam by myself was normal. Oncology was ordered a liver biopsy for tomorrow. The bone scan I have talked with Dr. Flores, he feels that the patient who is on for Oncology and he feels the patient even if the liver biopsy is positive for adenocarcinoma, ultimately change his treatment options. Hypercalcemia seems to be clicking up every day. Renal function is preserved for now that is bumping slowly as well. RECOMMENDATIONS: I would increase the patient's fluids to 100 an hour. I would consider giving a bisphosphonate to get his hypercalcemia under control. I would biopsy of his liver. If that is adenocarcinoma, then we can consider endoscopies. Alternative would be to proceed with upper and lower endoscopy now , however, the lack of GI symptoms gets a guarantee to give him a diagnosis, although this probably is a GI primary. I think that it is going to be pretty difficult for him to do an endoscopy. He is already kind of dehydrated from the hypercalcemia that should be corrected first, we had to make a diagnosis. It is possible that he will have no overt GI findings and with the lack of any anemia, I would not surprise me if he does not have any intraluminal disease. ELAINED
[2017-11-13] MEDS: Docusate 100 MG CAP PO SCH ×2 (09:12→21:27)
[2017-11-13] MEDS: Lidocaine 5% Patch TD SCH (09:23)
[2017-11-13] MEDS: Enoxaparin Sodium 30 MG/0.3 ML SYRINGE SC SCH ×2 (09:24→13:10)
[2017-11-13] MEDS ORDERED: Fentanyl 100 MCG/2 ML VIAL SLOW IVP SCH (12:45)
[2017-11-13] MEDS ORDERED: HYDROcodone/Acetaminophen 10/325 mg Tablet PO PRN (12:45)
--- NOTE | 2017-11-13 12:48 | PDOC.PN ---
- Subjective Encounter Start Date: 11/13/17 Encounter Start Time: 12:46 Mr. Spain was seen today in follow-up of metastatic cancer- unknown primary. He says the pain is only moderately controlled. He is a bit anxious about going for his biopsy. - Objective Resuscitation Status: Resuscitation Status FULL:Full Resuscitation MAR Reviewed: Yes Vital Signs & Weight: Vital Signs (12 hours) Temp Pulse Resp BP Pulse Ox 11/13/17 08:36 98.1 F 69 18 163/80 H 90 L Weight Admit Weight 214 lb 15.211 oz Weight 214 lb 15.211 oz I&O: 11/12/17 11/13/17 11/14/17 06:59 06:59 06:59 Intake Total 4411 3027 Balance 4411 3027 Result Diagrams: 11/12/17 04:09 11/13/17 04:49 Phys Exam - Physical Examination HEENT: PERRLA Respiratory: no wheezing, no rales, no rhonchi, clear to auscultation bilateral Cardiovascular: RRR, no significant murmur, no rub Gastrointestinal: soft, positive bowel sounds Musculoskeletal: no edema Dx/Plan (1) Cholelithiasis Code(s): K80.20 - CALCULUS OF GALLBLADDER W/O CHOLECYSTITIS W/O OBSTRUCTION Status: Acute (2) Metastatic malignant neoplasm of unknown primary site Code(s): C79.9 - SECONDARY MALIGNANT NEOPLASM OF UNSPECIFIED SITE; C80.1 - MALIGNANT (PRIMARY) NEOPLASM, UNSPECIFIED Status: Acute - Plan * Metastatic cancer- unknown primary- he is going for CT guided liver biopsy today * Pain- likely due to cancer- will add Clifford 10mg as an option * Hypercalcemia- likely due to malignancy- continue IV hydration- will check PTH and PTHrP, and consider Zometa.
[2017-11-13] MEDS ORDERED: Midazolam HCl 2 mg/2 ml Vial ONE (12:51)
[2017-11-13] MEDS ORDERED: Fentanyl 100 MCG/2 ML VIAL ONE (12:51)
--- NOTE | 2017-11-13 13:24 | PRG ---
DATE OF SERVICE: 11/13/2017. SUBJECTIVE: Mr. Spain still has some chest pain related to when he moves. He is waiting for his li sohan biopsy. His family member is at the bedside. PHYSICAL EXAMINATION: VITAL SIGNS: Temperature is 98, pulse 69, blood pressure 163/80. ABDOMEN: Soft, nontender. LABORATORY DATA: Calcium of 11.4 today. AST and ALT are 230 and 136 with alkaline phosphatase of 17 4. ASSESSMENT: 1. Multiple liver lesions noted on outside imaging studies. He is going to go for a liver biopsy to day, elevated CA would indicate probably adenocarcinoma. He will need to get upper and lower endosco py this week as well. We will make sure he recovers fine from the liver biopsy and then probably pro ceed with endoscopies on Monday. 2. Ongoing pain with pathologic fractures in the ribs and evidence of bone lesions throughout the ax ial and peripheral skeleton, probably metastatic disease. 3. Hypercalcemia. RECOMMENDATIONS: 1. We will defer to Oncology and Internal Medicine whether to treat the hypercalcemia, probably ough t to be. 2. Upper and lower endoscopy on Monday. 3. Await liver biopsy.
--- NOTE | 2017-11-13 16:14 | CT ---
CT GUIDED LIVER BIOPSY: CLINICAL HISTORY: Liver lesions of indeterminate etiology. PROCEDURE: Informed consent was obtained from the patient. The patient was escorted to the procedural suite and laced into a left decubitus, semisupine position. The patient's right abdomen was prepped and drape d in the standard sterile fashion and CT fluoroscopic imaging was utilized to localize the region of interest within the inferior right hepatic lobe for biopsy purposes. Topical anesthesia with buffere d 1% Lidocaine was performed. A small skin incision was made through which a 17 gauge trocar was adv anced into the superficial aspect of the inferior portion right hepatic lobe. The inner stylette was removed and was exchanged for an 18 gauge biopsy needle. Subsequently, 4 separate core specimens we re acquired utilizing CT fluoroscopic imaging. The biopsy specimens were provided to the on-call pat hologist, Dr. Riley Macedo. The specimens were deemed adequate for interpretation, with abnormal ce lls present. Therefore, the exam was completed and thus terminated with all devices removed from the patient. Postprocedural imaging was performed which did not reveal an unexpected complication. No significant hematoma was present. The patient was transferred back to the hospital floor for continu ed care, in stable condition. IMPRESSION: Technically successful CT-guided liver biopsy. Pathology results are pending. Imaging was stored for documentation. POS: PHIL
[2017-11-13] MEDS ORDERED: Zoledronic Acid 4 MG in Sodium Chloride 0.9% 100 ML IVPB SCH (16:30)
[2017-11-13 17:12] LABS: A/G Ratio 0.9 (0.7-1.7); Albumin 3.1 g/dL (2.9-4.4); Alpha 1 0.3 g/dL (0.0-0.4); Alpha 2 0.6 g/dL (0.4-1.0); Beta 1.1 g/dL (0.7-1.3); Gamma 1.5 g/dL (0.4-1.8); Globulin, Total 3.5 g/dL (2.2-3.9); M-Spike Not Observed g/dL (Not Observed)
[2017-11-13] MEDS ORDERED: hydrALAZINE 20 MG/ML VIAL SLOW IVP PRN (17:21)
[2017-11-13] MEDS ORDERED: cloNIDine 0.1 MG TAB PO PRN (17:21)
[2017-11-13] MEDS: Lidocaine Patch Removal 1 EACH TOP SCH (21:27)
[2017-11-13] MEDS: traMADol HCl 50 MG TAB PO PRN (22:02)
[2017-11-14] MEDS: Sodium Chloride 0.9% 1,000 ML IV SCH ×3 (07:16→19:39)
[2017-11-14] MEDS: Enoxaparin Sodium 30 MG/0.3 ML SYRINGE SC SCH (08:46)
[2017-11-14] MEDS: Lidocaine 5% Patch TD SCH (08:46)
[2017-11-14] MEDS: Lisinopril 20 MG TAB PO SCH (08:47)
[2017-11-14] MEDS: Docusate 100 MG CAP PO SCH ×2 (08:47→20:57)
[2017-11-14] MEDS ORDERED: Lisinopril 20 MG TAB PO SCH (09:00)
[2017-11-14] MEDS: Acetaminophen 325 MG TAB PO PRN ×2 (10:30→20:58)
--- NOTE | 2017-11-14 13:04 | PDOC.PN ---
- Subjective Encounter Start Date: 11/14/17 Encounter Start Time: 12:58 Ms. Spain was seen today in follow-up of metastatic cancer. He notes nausea which is started this morning. It started before he ate. He also notes a decrease in his appetite. He also says the pain in his chest area is not well controlled. - Objective Resuscitation Status: Resuscitation Status FULL:Full Resuscitation MAR Reviewed: Yes Vital Signs & Weight: Vital Signs (12 hours) Temp Pulse Resp BP BP Pulse Ox 11/14/17 12:51 98.7 F 11/14/17 11:58 101.0 F H 101 H 20 119/66 92 L 11/14/17 10:30 102.3 F H 11/14/17 08:47 100.4 F H 109 H 20 137/81 137/81 94 L 11/14/17 08:40 100.4 F H 109 H 20 94 L Weight Admit Weight 214 lb 15.211 oz Weight 214 lb 15.211 oz I&O: 11/13/17 11/14/17 11/15/17 06:59 06:59 06:59 Intake Total 3027 4170 Balance 3027 4170 Result Diagrams: 11/12/17 04:09 11/13/17 04:49 Phys Exam - Physical Examination HEENT: PERRLA Respiratory: no wheezing, no rales, no rhonchi, clear to auscultation bilateral Cardiovascular: RRR, no significant murmur, no rub Gastrointestinal: soft, non-tender, no distention, positive bowel sounds Musculoskeletal: no edema Dx/Plan (1) Cholelithiasis Code(s): K80.20 - CALCULUS OF GALLBLADDER W/O CHOLECYSTITIS W/O OBSTRUCTION Status: Acute (2) Metastatic malignant neoplasm of unknown primary site Code(s): C79.9 - SECONDARY MALIGNANT NEOPLASM OF UNSPECIFIED SITE; C80.1 - MALIGNANT (PRIMARY) NEOPLASM, UNSPECIFIED Status: Acute - Plan * Metastatic cancer- awaiting biopsy results. * Chest and abdominal pain- will add Morphine IV for pain relief, as patient has nausea as well * Fever- will check a set of blood cultures
[2017-11-14 16:11] LABS: Reference Lab Name LABCORP
[2017-11-14 16:12] LABS: Ref Lab Test Ordered PTH RELATED PEPTIDE
[2017-11-14] MEDS: Milk Of Magnesia 30 ML UDCUP PO PRN (18:08)
[2017-11-14] MEDS ORDERED: Naloxone HCl 0.4 mg/ml Vial IV PRN ×2 (18:50→18:52)
[2017-11-14] MEDS ORDERED: Ondansetron HCl/PF 4 MG/2 ML Vial IVP PRN (18:50)
[2017-11-14] MEDS: HYDROmorphone 10 mg/100 ml CADD IV PRN (19:36)
[2017-11-14] MEDS: Lidocaine Patch Removal 1 EACH TOP SCH (20:57)
--- NOTE | 2017-11-15 02:11 | PRG ---
DATE OF SERVICE: 11/14/2017 SUBJECTIVE: Mr. Spain is pretty miserable today. He states anytime he moves, he has pretty bad nadeem n. He does not want to eat. He is nauseated. Related to the pain, he has been started on some morp meliza. He had a fever of 102.3 this morning, 98.4 now. OBJECTIVE: VITAL SIGNS: Pulse is 86, blood pressure 146/80. GENERAL: He is resting in bed. He is little bit confused. He received some morphine. He states it just caused him lot of pain to get up and move. LUNGS: Clear. HEART: Regular rate and rhythm. ABDOMEN: Nontender. LABORATORY DATA: Laboratory studies today none. MEDICATIONS: Tylenol, [place], Dulcolax, Catapres, colchicine, Lovenox, Apresoline, Lidoderm, Zestril, milk of magnesia, melatonin, morphine p.r.n., Zofran, Senokot, normal saline at 125 an hour, Ultram. ASSESSMENT: The patient has diffusely metastatic carcinoma by imaging studies with malignant fractur es in his chest. Biopsy of liver has been performed. Oncology has requested upper and lower endosco pies to evaluate for possible GI primary in light of elevated CEA of 110. RECOMMENDATIONS: 1. At this point in time, the patient is not comfortable enough to undergo anything. He will not dr ink bowel prep and I do think he can get up to the bathroom. I would recommend getting pain manageme nt involved in his care, possibly a WEB DESIGNER DEVELOPER or fentanyl patch to control the patient's metastatic bone pa in. 2. Once this is done and his nausea is controlled, we will get him bowel prep and get an upper and l ower endoscopies were performed. We will follow along with you.
[2017-11-15] MEDS: Sodium Chloride 0.9% 1,000 ML IV SCH ×2 (05:49→18:09)
[2017-11-15 06:04] LABS: ALT (SGPT) 130 U/L (8-55); AST (SGOT) 196 U/L (5-34); Albumin 2.5 g/dL (3.4-4.8); Alkaline Phosphatase 171 U/L (40-150); Anion Gap 11 mmol/L (10-20); BUN (Urea Nitrogen) 30 mg/dL (8.4-25.7); Bilirubin, Total 0.9 mg/dL (0.2-1.2); Calc. Creatinine Clearance 61 mL/min (70-130); Calcium 8.7 mg/dL (7.8-10.44); Carbon Dioxide 22 mmol/L (23-31); Chloride 108 mmol/L (98-107); Estimated GFR-MDRD 55; Glucose 109 mg/dL (83-110); Potassium 4.9 mmol/L (3.5-5.1); Protein, Total 5.5 g/dL (5.8-8.1); Sodium 136 mmol/L (136-145)
[2017-11-15 06:42] LABS: #Eosinphils 0.1 thou/uL (0.0-0.7); #Lymphocytes 0.9 thou/uL (1.20-3.40); #Monocytes 0.3 thou/uL (0.11-0.59); %Basophils 0.3 % (0.0-1.0); %Eosinophils 1.6 % (0.0-10.0); %Lymphocytes 11.9 % (21.0-51.0); %Monocytes 4.3 % (0.0-10.0); %Neutrophils 81.9 % (42.0-75.0); Band 3 % (5-11); Hemoglobin 12.6 g/dL (14.0-18.0); Hypochromia SLIGHT = 6-15 cells (100X) (0-5/hpf); Lymphocytes 8 % (21-51); MDiff Complete? YES; Mean Corpuscular Hemoglobin 32.4 pg (27.0-31.0); Mean Corpuscular Volume 95.3 fL (78.0-98.0); Monocytes 2 % (0-10); Neutrophil 87 % (42-75); PLT Morphology Comment Appears Decreased; Platelet Count 94 thou/uL (130-400); RBC Distribution Width 13.2 % (11.5-14.5); Red Blood Cell (RBC) Count 3.89 mill/uL (4.70-6.10); White Blood Cell (WBC) Count 7.3 thou/uL (4.8-10.8)
[2017-11-15] MEDS: Docusate 100 MG CAP PO SCH ×2 (08:21→21:52)
[2017-11-15] MEDS: Lidocaine 5% Patch TD SCH (08:26)
[2017-11-15] MEDS: Enoxaparin Sodium 30 MG/0.3 ML SYRINGE SC SCH (11:26)
--- NOTE | 2017-11-15 13:07 | EKG ---
Test Reason : Blood Pressure : / mmHG Vent. Rate : 070 BPM Atrial Rate : 070 BPM P-R Int : 258 ms QRS Dur : 104 ms QT Int : 368 ms P-R-T Axes : -06 -23 041 degrees QTc Int : 397 ms Sinus rhythm with 1st degree A-V block Otherwise normal ECG Confirmed by CASANDRA EVERETT DO ([id number]), social media editor MARYLU HARRIS ([id number]) on 11/15/2017 1:07:17 PM Referred By: Confirmed By:CASANDRA EVERETT DO
[2017-11-15] MEDS: Lisinopril 20 MG TAB PO SCH (14:59)
[2017-11-15] MEDS: Milk Of Magnesia 30 ML UDCUP PO PRN (15:03)
--- NOTE | 2017-11-15 16:08 | PDOC.PN ---
- Subjective Encounter Start Date: 11/15/17 Encounter Start Time: 16:06 Mr. Spain was seen today in follow-up of metastatic cancer, primary unknown. He is had fairly severe pain in his chest area, which has not been completely relieved with even the SALES AND IN HOME DELIVERY SPECIALIST pump. He says he feels ok if he lays still, but if he moves around he has fairly severe pain. He also has not had a bowel movement in 4 days. - Objective Resuscitation Status: Resuscitation Status DNR:Do Not Resuscitate MAR Reviewed: Yes Vital Signs & Weight: Vital Signs (12 hours) Temp Pulse Resp BP BP BP Pulse Ox 11/15/17 14:59 101/55 L 11/15/17 11:18 98.4 F 76 20 120/60 97 11/15/17 08:00 97.6 F 117 H 22 H 99 11/15/17 07:49 97.6 F 117 H 22 H 115/56 L 99 Weight Admit Weight 214 lb 15.211 oz Weight 214 lb 15.211 oz I&O: 11/14/17 11/15/17 11/16/17 06:59 06:59 06:59 Intake Total 4170 3048 Balance 4170 3048 Result Diagrams: 11/15/17 05:57 11/15/17 05:11 Phys Exam - Physical Examination HEENT: PERRLA Respiratory: no wheezing, no rales, no rhonchi, clear to auscultation bilateral Cardiovascular: RRR, no significant murmur, no rub Gastrointestinal: soft, no distention, positive bowel sounds +tenderness in the RUQ, no rebound Musculoskeletal: no edema Dx/Plan (1) Cholelithiasis Code(s): K80.20 - CALCULUS OF GALLBLADDER W/O CHOLECYSTITIS W/O OBSTRUCTION Status: Acute (2) Metastatic malignant neoplasm of unknown primary site Code(s): C79.9 - SECONDARY MALIGNANT NEOPLASM OF UNSPECIFIED SITE; C80.1 - MALIGNANT (PRIMARY) NEOPLASM, UNSPECIFIED Status: Acute - Plan * Intractable cancer pain- continue SALES AND IN HOME DELIVERY SPECIALIST- however will add Toradol, to see if he may have some pain that is NSAID responsive * He is aware of the cancer diagnosis, but will need additional information regarding chemotherapy side effects in order to make a decision regarding treatment. * Constipation- continue current treatment, and will add a Fleets enema
[2017-11-15] MEDS ORDERED: Fleet Enema 133 ML BOT PR SCH (16:15)
[2017-11-15] MEDS ORDERED: traMADol HCl 50 MG TAB PO PRN (16:22)
[2017-11-15] MEDS ORDERED: HYDROcodone/Acetaminophen 5/325 mg Tablet PO PRN ×2 (16:22)
[2017-11-15] MEDS ORDERED: HYDROcodone/Acetaminophen 10/325 mg Tablet PO PRN (16:23)
[2017-11-15] MEDS ORDERED: GoLYTELY 4,000 ml Bottle PO SCH (20:30)
[2017-11-15] MEDS: Ketorolac Tromethamine 30 MG/ML VIAL IVP SCH (21:52)
[2017-11-15] MEDS: Lidocaine Patch Removal 1 EACH TOP SCH (21:53)
[2017-11-15] MEDS: HYDROmorphone 10 mg/100 ml CADD IV PRN (22:08)
--- NOTE | 2017-11-16 02:41 | PRG ---
DATE OF SERVICE: 11/15/2017 SUBJECTIVE: Mr. Spain' biopsy from liver came back as adenocarcinoma. He is still having quite a b it of pain. He was started on a CORE MACHINE OPERATOR yesterday, 0.3 mg Dilaudid every 15 minutes p.r.n., no basal rat e. He is on oral hydrocodone. He was started on some Toradol to see if some of this could be respon sive to anti-inflammatories. He was on Lidoderm patch. He has Senokot and received one enema today and has not had bowel movements for the past 4 days. He still has quite a bit of pain in the chest, this does pretty well, he is not moving around. OBJECTIVE: VITAL SIGNS: Temperature is 98, pulse 82, blood pressure 145/68. LUNGS: Clear, decreased breath sounds, decreased excursion. HEART: Regular rate and rhythm. ABDOMEN: Soft, nontender. EXTREMITIES: No clubbing, cyanosis or edema. LABORATORY DATA: White count 7.3, hemoglobin 12.6, platelet count 94,000. INR 1.1. BUN and creatin ine are 30 and 1.2, AST and ALT are 186 and 130, alkaline phosphatase was 171. ASSESSMENT AND PLAN: Metastatic adenocarcinoma, unknown primary. I have discussed with the patient and daughters at the bedside. Further workup with endoscopies as this may change his treatment optio ns. We have also discussed options of hospice care. At this point in time, his pain is better contr olled than yesterday. to see if there is anything could be done about this. He understands th e treatment would be palliative at best, but certain cancers would respond better than others. If he can tolerate a prep today, we will proceed with EGD and colonoscopy tomorrow. If he cannot to lerate a prep, we will just proceed with an EGD.
[2017-11-16] MEDS: Sodium Chloride 0.9% 1,000 ML IV SCH ×4 (03:34→23:30)
[2017-11-16] MEDS: Ketorolac Tromethamine 30 MG/ML VIAL IVP SCH ×3 (05:41→22:16)
[2017-11-16] MEDS ORDERED: GoLYTELY 4,000 ml Bottle PO SCH (06:30)
[2017-11-16] MEDS: Docusate 100 MG CAP PO SCH ×2 (08:13→20:35)
[2017-11-16] MEDS: Enoxaparin Sodium 30 MG/0.3 ML SYRINGE SC SCH (08:13)
[2017-11-16] MEDS: Lidocaine 5% Patch TD SCH (08:13)
[2017-11-16] MEDS: Lisinopril 20 MG TAB PO SCH (08:13)
[2017-11-16] MEDS: HYDROmorphone 10 mg/100 ml CADD IV PRN (09:26)
[2017-11-16] MEDS ORDERED: Fentanyl 100 MCG/2 ML VIAL ONE (12:11)
--- NOTE | 2017-11-16 13:37 | OP ---
DATE OF PROCEDURE: 11/16/2017 PREOPERATIVE DIAGNOSIS: Metastatic adenocarcinoma of unknown primary. PROCEDURE IN DETAIL: After informed consent was obtained, the patient was placed in the left lateral decubitus position. Anesthesia was administered per the Anesthesia Department. Forward-viewing end oscope was inserted into the esophagus under direct visualization with ease and passed to the second portion of the duodenum with ease. Second portion of the duodenum and duodenal bulb were normal. Th e pylorus, antrum, body, fundus and cardia were normal. The esophagus was normal throughout. The pr ocedure had to be terminated early because of desaturation, but full visualization to exclude the mas s or cancer was sufficient. The esophagus was normal throughout. ASSESSMENT: Normal esophagogastroduodenoscopy. RECOMMENDATIONS: Proceed with colonoscopy. PROCEDURE IN DETAIL: After informed consent was obtained, the patient was placed in the left lateral decubitus position. Anesthesia was administered per the Anesthesia Department. Forward-viewing end oscope was inserted into the rectum after perianal inspection and rectal exam were normal and passed to the cecum with ease. The cecum, ileocecal valve and appendiceal orifice were normal. The prep wa s good, but not excellent. The ascending, transverse, descending, sigmoid and rectum were normal exc ept for diffuse diverticulosis coli. ASSESSMENT: 1. Diffuse diverticulosis coli. 2. Otherwise, normal colonoscopy. RECOMMENDATIONS: Continue to treat metastatic adenocarcinoma.
--- NOTE | 2017-11-16 15:41 | PRG ---
DATE OF SERVICE: 11/16/2017 SUBJECTIVE: Ms. Spain's pain is well controlled. OBJECTIVE: VITAL SIGNS: Stable. ABDOMEN: Soft, nontender. ASSESSMENT: Adenocarcinoma of unknown primary. He had a normal EGD and colonoscopy today with metas tatic disease to the bone, this is stage IV cancer. RECOMMENDATIONS: I talked with the patient's family. I would advise him to visit with Oncology, get extra information about what they may have in the way of therapy and what the risk of that maybe and what benefits that he can get from it. I think if there is minimal benefit to be gained, hospice sh ould be considered. I would defer this decision to the patient and his oncologist.
--- NOTE | 2017-11-16 16:41 | PDOC.PN ---
- Subjective Encounter Start Date: 11/16/17 Encounter Start Time: 16:40 Mr. Spain was seen in follow-up of Metastatic adenocarcinoma . He says today his pain is better controlled. He rested well according to his daughters last night. - Objective Resuscitation Status: Resuscitation Status DNR:Do Not Resuscitate MAR Reviewed: Yes Vital Signs & Weight: Vital Signs (12 hours) Temp Pulse Resp BP BP BP Pulse Ox 11/16/17 13:14 97.9 F 71 18 138/67 97 11/16/17 11:00 97.4 F L 75 18 128/83 93 L 11/16/17 08:13 133/65 11/16/17 08:00 97.6 F 66 18 133/65 97 11/16/17 04:44 97.8 F 75 18 130/75 100 Weight Admit Weight 214 lb 15.211 oz Weight 217 lb I&O: 11/15/17 11/16/17 11/17/17 06:59 06:59 06:59 Intake Total 3048 5761 Balance 3048 5761 Result Diagrams: 11/15/17 05:57 11/15/17 05:11 Phys Exam - Physical Examination HEENT: PERRLA Respiratory: no wheezing, no rales, no rhonchi, clear to auscultation bilateral Cardiovascular: RRR, no significant murmur, no rub Gastrointestinal: soft, non-tender, no distention, positive bowel sounds Musculoskeletal: no edema Dx/Plan (1) Cholelithiasis Code(s): K80.20 - CALCULUS OF GALLBLADDER W/O CHOLECYSTITIS W/O OBSTRUCTION Status: Acute (2) Metastatic malignant neoplasm of unknown primary site Code(s): C79.9 - SECONDARY MALIGNANT NEOPLASM OF UNSPECIFIED SITE; C80.1 - MALIGNANT (PRIMARY) NEOPLASM, UNSPECIFIED Status: Acute - Plan * Metastatic cancer- unknown primary- discussed with the patient at length. He has decided on Hospice Care * Will place a consult with Case Management * Will need to transition him to an oral pain regimen, either MS-Contin or Fentany with Hydrocodone for breakthrough- will try tomorrow l.
[2017-11-16] MEDS: Lidocaine Patch Removal 1 EACH TOP SCH (20:35)
[2017-11-17] MEDS ORDERED: HYDROmorphone 10 mg/100 ml CADD IV PRN (00:50)
[2017-11-17] MEDS: Enoxaparin Sodium 30 MG/0.3 ML SYRINGE SC SCH (08:42)
[2017-11-17] MEDS: Docusate 100 MG CAP PO SCH ×2 (08:43→22:48)
[2017-11-17] MEDS: Lisinopril 20 MG TAB PO SCH (08:43)
[2017-11-17] MEDS: Sodium Chloride 0.9% 1,000 ML IV SCH ×2 (08:43→17:52)
[2017-11-17] MEDS: Lidocaine 5% Patch TD SCH (09:51)
--- NOTE | 2017-11-17 12:43 | PDOC.PN ---
- Subjective Encounter Start Date: 11/17/17 Encounter Start Time: 12:40 Mr. 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 He says the pain in his chest and abdomen are present, but he was able to rest last night. He says the pain is worse with movement. The abdominal pain seems to have a component of gaseous distention to it, as it improved, after passing gas, and after a bowel movement. - Objective Resuscitation Status: Resuscitation Status DNR:Do Not Resuscitate MAR Reviewed: Yes Vital Signs & Weight: Vital Signs (12 hours) Temp Pulse Resp BP BP BP Pulse Ox 11/17/17 11:26 97.5 F L 108 H 12 155/81 H 100 11/17/17 08:43 155/81 H 11/17/17 08:00 98.1 F 75 16 100 11/17/17 07:52 98.1 F 75 16 155/81 H 100 11/17/17 04:20 97.9 F 78 18 117/79 92 L 11/17/17 02:14 10 L Weight Admit Weight 214 lb 15.211 oz Weight 217 lb I&O: 11/16/17 11/17/17 11/18/17 06:59 06:59 06:59 Intake Total 5761 5635.8 Balance 5761 5635.8 Result Diagrams: 11/15/17 05:57 11/15/17 05:11 Additional Labs: Accuchecks 11/16/17 21:02 POC Glucose 145 H Phys Exam - Physical Examination HEENT: PERRLA Respiratory: no wheezing, no rales, no rhonchi, clear to auscultation bilateral Cardiovascular: RRR, no significant murmur, no rub Gastrointestinal: soft, positive bowel sounds Musculoskeletal: edema present trace pedal edema, right leg,> left Dx/Plan (1) Metastatic malignant neoplasm of unknown primary site Code(s): C79.9 - SECONDARY MALIGNANT NEOPLASM OF UNSPECIFIED SITE; C80.1 - MALIGNANT (PRIMARY) NEOPLASM, UNSPECIFIED Status: Acute (2) Cholelithiasis Code(s): K80.20 - CALCULUS OF GALLBLADDER W/O CHOLECYSTITIS W/O OBSTRUCTION Status: Resolved (3) Cancer associated pain Code(s): G89.3 - NEOPLASM RELATED PAIN (ACUTE) (CHRONIC) Status: Acute - Plan * Metastatic cancer- he has decided to pursue Hospice Care * Pain Control- Discussed with Anesthesia- the basal rate on the DOUBLE SPINDLE SH[employer]ER [employer]PERATOR pump has been stopped, and will start MS- Contin twice a day. He can still receive on demand medication via the DOUBLE [employer]LE [employer] OPERATOR. Continue to transition to oral medication * Once he is on oral medication he can be discharge home on Hospice .
[2017-11-17] MEDS: Simethicone Chewable 80 MG TAB PO SCH ×2 (14:12→22:48)
[2017-11-17] MEDS ORDERED: Morphine ER 15 MG TAB PO SCH (14:15)
--- NOTE | 2017-11-17 21:06 | PRG ---
DATE OF SERVICE: 11/17/2017 SUBJECTIVE: Mr. Spain to the bathroom. His daughter informs me that they have pretty much de cided to go to hospice. OBJECTIVE: VITAL SIGNS: Pulse is 78 to 108, blood pressure is 155/81, temperature is 97.5. EXTREMITIES: He has diffuse edema. ASSESSMENT: Adenocarcinoma of unknown primary. Negative EGD and colonoscopy with bone mets and live r mets. The patient's family informed to they talk with Dr. Flores and Oncology Service. They have decided to move towards hospice at this time. At this time, I will sign off. The patient's pain is well controlled. PLAN: At this time, I am going to go ahead and signoff. If can be of any further assistance in tito ent's care, please do not hesitate to contact me.
[2017-11-17] MEDS: Morphine ER 15 MG TAB PO SCH (22:47)
[2017-11-17] MEDS: Lidocaine Patch Removal 1 EACH TOP SCH (22:50)
[2017-11-18] MEDS: Sodium Chloride 0.9% 1,000 ML IV SCH (02:00)
[2017-11-18] MEDS: Enoxaparin Sodium 30 MG/0.3 ML SYRINGE SC SCH (07:23)
[2017-11-18] MEDS: Morphine ER 15 MG TAB PO SCH (08:26)
[2017-11-18] MEDS: Docusate 100 MG CAP PO SCH (08:28)
[2017-11-18] MEDS: Simethicone Chewable 80 MG TAB PO SCH ×2 (08:28→17:04)
[2017-11-18] MEDS: Lisinopril 20 MG TAB PO SCH (08:28)
[2017-11-18] MEDS: Furosemide 20 MG/2 ML VIAL SLOW IVP SCH ×2 (11:43→12:04)
[2017-11-18] MEDS: Lidocaine 5% Patch TD SCH (12:02)
[2017-11-18 16:24] VITALS: BP 145/81; TEMP 98.2
--- NOTE | 2017-11-18 22:25 | DIS ---
DATE OF ADMISSION: 11/09/2017 DATE OF DISCHARGE: 11/18/2017 PRIMARY CARE PHYSICIAN: Dr. Ahsan Bui. ADMITTING DIAGNOSES: 1. Metastatic adenocarcinoma of unknown origin. 2. Bone and liver metastases. 3. Abnormal liver function tests. 4. Hypercalcemia. CONSULTATIONS DURING THIS HOSPITALIZATION: Medical Oncology, Dr. Flores; gastroenterology, Dr. Marquez; general surgery, Dr. Beverly. CONDITION OF PATIENT ON THE DAY OF DISCHARGE: Stable. I assessed Mr. Spain on the day of discharge . He reports that pain is better. Vital signs are stable. S1 and S2 are heard, regular. Lungs are clear to auscultation bilaterally. DISCHARGE MEDICATIONS: He is being discharged home on pain medications as per hospice service, lisin opril 20 mg daily, omeprazole 40 mg daily, Dulcolax 10 mg daily as needed, Colace 100 mg 2 times a da y, and melatonin 3 mg at bedtime as needed. HOSPITAL COURSE: Mr. Spain is a pleasant 82-year-old gentleman who was admitted to [facility] on 11/09/2017 for chest pain secondary to bony metastases. Please refer to Dr. Dougie no's history and physical note dated 11/10/2017 for further details. He had abdominal ultrasound, whi ch showed multiple gallstones within the gallbladder with some gallbladder wall thickening and a smal l amount of fluid adjacent to the gallbladder. He had very extensive abnormal nodular echogenicity t hroughout the right and left lobes of the liver, worrisome for very extensive liver metastases. He a lso had a complex left renal cystic mass. He was seen by Oncology, General Surgery, and Gastroentero logy services. A 2D echocardiogram on 11/10/2017 showed left ventricular ejection fraction of 50%-55 %, EF flow reversal suggestive of diastolic dysfunction, mild mitral regurgitation, sclerotic aortic valve, mild aortic regurgitation, and mild tricuspid regurgitation. He also underwent Doppler study of the right lower extremity because of pain and edema. The study did not reveal any right lower ext remity DVT. On 11/13/2017, he underwent CT-guided liver biopsy. Pathology report indicated metastat ic adenocarcinoma, with a differential diagnosis including pancreatobiliary tract and upper gastroint estinal tract. He underwent bidirectional scope studies on 11/16/2017. He had normal esophagogastro duodenoscopy, diffuse diverticulosis coli, otherwise normal colonoscopy. After discussion with patient's family, patient wanted to have hospice care. Hospice Service was con sulted, and patient is being discharged for inpatient hospice on 11/18/2017. Many thanks for allowing me to participate in your patient's care. Please feel free to contact me wi th any questions or concerns. Please note that he had hypercalcemia at the time of admission, which normalized by 11/15/2017. DISCHARGE DESTINATION: Inpatient hospice. TOTAL AMOUNT OF TIME SPENT COORDINATING THIS DISCHARGE: 33 minutes.
== END 2017-11-18 17:14 | disposition hospice, inpatient (51) | DRG 436 ==
LOC: ERS 18:47 → T4-B 20:19
PROVIDERS: ADMIT Family Medicine; ATTEND Family Medicine
PROC: 0FB13ZX Excision of Right Lobe Liver, Percutaneous Approach, Diagnostic (ICD-10-PCS; 2017-11-14)
PROC: 0DJ08ZZ Inspection of Upper Intestinal Tract, Via Natural or Artificial Opening Endoscopic (ICD-10-PCS; principal; 2017-11-16)
PROC: 0DJD8ZZ Inspection of Lower Intestinal Tract, Via Natural or Artificial Opening Endoscopic (ICD-10-PCS; 2017-11-16)
DX: C78.7 Secondary malignant neoplasm of liver and intrahepatic bile duct (principal); C79.51 Secondary malignant neoplasm of bone; C80.1 Malignant (primary) neoplasm, unspecified; Z51.5 Encounter for palliative care; G89.3 Neoplasm related pain (acute) (chronic); K57.30 Diverticulosis of large intestine without perforation or abscess without bleeding; E83.52 Hypercalcemia; I10 Essential (primary) hypertension; K80.20 Calculus of gallbladder without cholecystitis without obstruction; Z88.8 Allergy status to other drugs, medicaments and biological substances; Z79.899 Other long term (current) drug therapy
CPT/HCPCS: 36415; 36416; 47000; 76705; 77012; 80053; 82378; 82550; 83690; 83970; 84153; 84165; 84484; 85025; 85610; 85730; 87040; 88307; 88333; 88341; 88342; 93005; 93010; 93306; A4216; G8978-GP-CJ; G8979-GP-CJ; G8980-GP-CJ; J1650; J1885; J1940; J2250; J2270; J2405; J3010; J3489; J7050